=== PATIENT | male | born 1935 | race Caucasian/White ===

== ENCOUNTER 2018-01-26 09:50 | Outpatient (RCR) | payer MEDICARE, OTHER, SELFPAY ==
[2018-01-26 10:34] VITALS: BP 162/86; PULSE 105; RESP 20; TEMP 36.8; BMI 41.5
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
== END 2018-02-03 23:59 ==
LOC: WC 09:50
PROVIDERS: PCP Family Medicine; Visit Provider Podiatrist
DX: E11.622 Type 2 diabetes mellitus with other skin ulcer (principal); L97.322 Non-pressure chronic ulcer of left ankle with fat layer exposed; L97.422 Non-pressure chronic ulcer of left heel and midfoot with fat layer exposed; E11.621 Type 2 diabetes mellitus with foot ulcer
CPT/HCPCS: 11042; 99204; G0463

== ENCOUNTER 2022-03-30 09:46 | Inpatient (IN) | payer OTHER, MEDICARE, SELFPAY ==
[2022-03-30] VITALS (8 sets, daily range): BP systolic 92–131; BP diastolic 62–78; PULSE 81–97; RESP 16–18; TEMP 36.2–37.2; O2SAT 93–97; BMI 38.5; BMI 36.6
--- NOTE | 2022-03-30 10:09 | CT_ITS ---
STUDY: CT BRAIN WITHOUT CONTRAST REASON FOR EXAM: Male, 86 years old. Fall RADIATION DOSAGE (If Supplied By Facility): CTDIvol = ( 44.99 ) mGy, DLP = ( 812.98 ) mGycm TECHNIQUE: Transaxial CT imaging of the brain was performed without administration of intravenous contrast material. Individualized dose optimization techniques were used for this CT. COMPARISON: No relevant priors. FINDINGS: Normal soft tissue structures. Normal calvarium. There is mild cerebral atrophy with widening of the extra-axial spaces and ventricular dilatation. Normal white matter tracts of the cerebral hemispheres. Normal basal ganglia and thalami. Normal brainstem. Normal cerebellum. There is no intracranial hemorrhage. There are no findings of an acute ischemic infarction. Atherosclerotic calcification of the cavernous portions of the internal carotid arteries bilaterally. Normal visualized paranasal sinuses. CT/Brain/Head without Contrast IMPRESSION: Chronic involutional changes of the brain. Electronically Signed: Moises Mckinney MD at 10:57 EDT ,
--- NOTE | 2022-03-30 10:09 | RAD_ITS ---
STUDY: X-RAY - PELVIS AND LEFT HIP REASON FOR EXAM: Male, 86 years old. Left hip pain following a fall TECHNIQUE: 3 views of the pelvis and hip. COMPARISON: None. FINDINGS: There is a non-specific bowel gas pattern. Calcification of the vas deferens. The space narrowing and spondylosis in the lower lumbar spine. There is narrowing with cortical sclerosis and osteophyte formation of the sacroiliac joint consistent with degenerative osteoarthritic changes. Normal bilateral superior and inferior pubic rami. Normal pubic symphysis. Normal bilateral ischial tuberosities. Nondisplaced transcervical fracture. Normal acetabulum. There is moderate articular joint space narrowing of the hip. RAD/HIP, UNI W/ Pelvis 2-3 Views IMPRESSION: Nondisplaced left transcervical fracture. Electronically Signed: Moises Mckinney MD at 10:56 EDT ,
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
[2022-03-30 10:25] LABS: Bedside Glucose 100 mg/dL (74-106)
--- NOTE | 2022-03-30 11:01 | EKG12_ITS ---
Test Reason : PRE-OP Blood Pressure : / mmHG Vent. Rate : 084 BPM Atrial Rate : 000 BPM P-R Int : 000 ms QRS Dur : 150 ms QT Int : 412 ms P-R-T Axes : 000 054 -40 degrees QTc Int : 486 ms Atrial fibrillation with premature ventricular or aberrantly conducted complexes Right bundle branch block T wave abnormality, consider inferolateral ischemia Abnormal ECG Confirmed by CLAU SCOTT, NABILA ([id number]), editor publications TOMASZ LEE ([id number]) on 04/01/2022 10:36:26 AM Referred By: Confirmed By:NABILA OLGUIN MD
[2022-03-30 11:23] LABS: Absolute Lymphocyte Count 1.91 X10^3/uL (0.83-4.51); Absolute Neutrophil Count 6.8 X10^3/uL (2.0-7.7); Basophil# 0.03 X10^3/uL; Basophil% 0.3 % (0-1); Eosinophil# 0.03 X10^3/uL; Eosinophils% 0.3 % (0-5); Hematocrit 37.2 % (40-54); Lymphocyte # 1.91 X10^3/ul (0.83-4.51); Lymphocyte % 20.1 % (19-41); Mean Corp Hgb Conc 32.3 g/dL (32-36); Mean Corpuscular Hgb 28.4 pg (27.0-32.0); Mean Corpuscular Volume 88.2 fL (80-94); Mean Platelet Vol. 9.4 fl (6.2-12.0); Monocyte# 0.73 X10^3/uL; Monocyte% 7.7 % (0-10); NRBC Flagged by Analyzer 0 % (0-5); Neutrophil # 6.75 X10^3/uL (2.7-7.7); Platelet Count 167 K/mm3 (150-450); RBC Distribution Width SD 44.6 fl (35.1-43.9); Red Blood Count 4.22 M/mm3 (4.6-6.2); White Blood Count 9.5 K/mm3 (4.4-11.0)
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
[2022-03-30 11:32] LABS: Anion Gap 6 (5-15); BUN 40 mg/dL (7-18); BUN/Creat Ratio 22.5 RATIO (10-20); Calcium,Total 8.3 mg/dL (8.5-10.1); Chloride 107 mmol/L (98-107); Creatinine, Serum 1.78 mg/dL (0.70-1.30); EST Glomerular Filtration Rate 39 mL/min (>60); Est Glom Filt Rate - Afr Amer 47 mL/min (>60); Estimated Creatinine Clearance 26.39 ml/min; Glucose 100 mg/dL (74-106); Potassium 4.2 mmol/L (3.5-5.1); Sodium Level 142 mmol/L (136-145)
[2022-03-30 11:38] LABS: International Normalized Ratio 1.5
[2022-03-30 11:39] LABS: Partial Thromboplast Time 43.5 Seconds (24.1-36.2)
--- NOTE | 2022-03-30 13:34 | CT_ITS ---
STUDY: CT SCAN LEFT REASON FOR EXAM: Male, 86 years old. Fracture RADIATION DOSAGE (If Supplied By Facility): CTDIvol = ( 33.11 ) mGy, DLP = ( 967.22 ) mGycm. Individualized dose optimization techniques were used for this CT.? TECHNIQUE: Multiple axial tomographic images of the left hip were obtained without intravenous contrast demonstration. Coronal and sagittal reconstructions obtained as well. COMPARISON: Comparison is made with prior radiograph done earlier today. FINDINGS: There is evidence of a subtle nondisplaced transverse fracture of the femoral neck. CT/Extremity Lower without Contra IMPRESSION: There is evidence of a subtle nondisplaced transverse fracture femoral neck. Electronically Signed: Moises Mckinney MD at 14:33 EDT ,
--- NOTE | 2022-03-30 13:36 | CON.PCM_ITS ---
Assessment & Plan Assessment/Plan (1) Closed fracture of left hip: PLAN: Plan Radiologist read a nondisplaced transcervical left hip fracture although I do see some sign of impaction I do not clearly see hip fracture and I am not sure this is a new finding on exam his pain is over the trochanter not the groin with logroll therefore I am ordering a CT scan of the hip to definitively evaluate if there is an acute fracture and also the extent of where propagates to determine appropriate treatment. If indeed it is an isolated nondisplaced impacted neck fracture we discussed proceeding with percutaneous screw fixation morning as he is on Eliquis and last dose was this morning. Eliquis should be h eld he has been started on Lovenox however we should hold this after midnight tonight for planned surgery 05/02/22 if medically cleared. HPI Consult Data Date of Consult: 03/30/22 HPI Narrative HPI Narrative: JAYY SIMMS, is a 86 M who presents with left hip pain after a fall.? He was at a local grocery store.? He was trying to get onto the [employer] grocery cart when his hand hit the button to start the machine.? It pulled forward and the patient fell landing on his left hip. his pain is lateral he denies groin pain. he states he does walk some with a walker, [facility] Medical History Atrial fibrillation Diabetes Diabetes mellitus Hypertension Sleep apnea Smoker Home Medications apixaban 5 mg tablet (Eliquis) 5 mg PO BID 03/30/22 [History Last Taken 03/30/22] bumetanide 1 mg tablet 1 mg PO DAILY FLUID 03/30/22 [History Last Taken 03/30/22] cyanocobalamin (vitamin B-12) 50 mcg tablet (Vitamin B-12) 50 mcg PO DAILY SUPPLEMENT 03/30/22 [History Last Taken 03/30/22] glimepiride 2 mg tablet 2 mg PO DAILY 03/30/22 [History Last Taken 03/29/22] lisinopril 10 mg tablet 10 mg PO DAILY BP 03/30/22 [History Last Taken 03/30/22] metformin 1,000 mg tablet 1,000 mg PO BID 03/30/22 [History Last Taken 03/30/22] metoprolol tartrate 25 mg tablet 25 mg PO BID 03/30/22 [History Last Taken 03/30/22] pantoprazole 20 mg tablet,delayed release 20 mg PO DAILY GERD 03/30/22 [History Last Taken 03/30/22] simvastatin 40 mg tablet 40 mg PO QHS CHOLESTEROL 03/30/22 [History Last Taken 03/29/22] Allergy/AdvReac Type Severity Reaction Status Date / Time Penicillins Allergy NEEDS Verified 03/30/22 09:47 FOLLOW-UP Social History Smoking Status: Current some day smoker tobacco type: cigars Physical Exam Const alert, oriented x3 and no apparent distress Extremity Extremity Narrative: No erythema or ecchymosis around the hip he is tender to palpation of the lateral trochanter he does not have any groin pain with logroll have lateral sided pain. He is able to plantarflex dorsiflex his ankle compartments are soft Lab / Micro Data Result Diagrams: 03/30/22 11:12 03/30/22 11:12 Labs: Laboratory Results - last 24 hr 03/30/22 10:05: POC Glucose 100 03/30/22 11:12: WBC 9.5, RBC 4.22 L, Hgb 12.0 L, Hct 37.2 L, MCV 88.2, MCH 28.4, MCHC 32.3, RDW Std Deviation 44.6 H, RDW Coeff of Areli 14.0, Plt Count 167, MPV 9.4, Immature Gran % (Auto) 0.600, Neut % (Auto) 71.0 H, Lymph % (Auto) 20.1, [place] % (Auto) 7.7, Eos % (Auto) 0.3, Baso % (Auto) 0.3, Absolute Neuts (auto) 6.8, Absolute Lymphs (auto) 1.91, Nucleated RBC % 0 03/30/22 11:12: PT 18.0 H, INR 1.5, APTT 43.5 H 03/30/22 11:12: Sodium 142, Potassium 4.2, Chloride 107, Carbon Dioxide 29.0, Anion Gap 6, BUN 40 H, Creatinine 1.78 H, Estim Creat Clear Calc 26.39, Est GFR (MDRD) Af Amer 47 L, Est GFR (MDRD) Non-Af 39 L, BUN/Creatinine Ratio 22.5 H, Glucose 100, Calcium 8.3 L Radiology Impression Brain CT 03/30/22 10:09 IMPRESSION: Chronic involutional changes of the brain. Electronically Signed: Moises Mckinney MD at 10:57 EDT , Hip/Pelvis X-Ray 03/30/22 10:09 IMPRESSION: Nondisplaced left transcervical fracture. Electronically Signed: Moises Mckinney MD at 10:56 EDT , Chest X-Ray 03/30/22 11:30 IMPRESSION: Findings suggestive of left basilar atelectasis with blunting of the left costophrenic angle. Electronically Signed: Moises Mckinney MD at 12:10 EDT ,
[2022-03-30] MEDS: oxyCODONE 5 MG Tablet PO (13:38)
--- NOTE | 2022-03-30 14:27 | HP.PCM.HOS_ITS ---
HPI - General General Date of Admission: 03/30/22 Date of Service: 03/30/22 Chief Complaint: Left hip pain HPI Narrative JAYY SIMMS, is a 86 M who presented to the emergency department at [facility] on 03/30/2022 with a chief complaint of left hip pain that occurred as a result of a mechanical fall. Patient was evidently at [employer] doing some grocery shopping and he was trying to get on an electric scooter grocery cart when his hand hit the button to start the machine. It pulled forward and the patient fell landing on his left hip. He did strike his head. He had no loss of consciousness at that time and he reports he is on Eliquis for history of atrial fibrillation. His last dose of Eliquis was this morning. Patient currently resides in an independent living facility Vital signs on presentation showed a temperature of 97.2, heart rate 94, blood pressure 125/73, respiratory rate of 18, oxygen saturations are 96% on room air. CBC is overall unremarkable other than a slight anemia with a hemoglobin of 12.0. His chemistry panel shows normal electrolytes with an elevated BUN and serum creatinine of 40 and 1.78 on presentation. Upon review of previous laboratory data it appears he has CKD stage IIIb however his baseline serum creatinine appears to be between 1.4 and 1.6. With reported head trauma CT of his brain was performed and showed only chronic involutional changes. Hip and pelvic x-ray showed a nondisplaced left transcervical fracture. Chest x-ray showed left basilar atelectasis with blunting of the left costophrenic angle but no acute findings. His EKG shows T wave inversions in the inferior lateral leads with a right bundle branch block and atrial fibrillation. The patient den ies any previous coronary artery disease or stent placement. [facility] Medical History (Updated 03/30/22 @ 14:[address] Bela Mayes, ) Atrial fibrillation B12 deficiency BPH (benign prostatic hyperplasia) Chronic anemia Diabetes Diabetic neuropathy GERD (gastroesophageal reflux disease) Gout Hyperlipidemia Hypertension Obesity ANDREINA (obstructive sleep apnea) Sleep apnea Smoker Stage 3b chronic kidney disease (CKD) Home Medications apixaban 5 mg tablet (Eliquis) 5 mg PO BID 03/30/22 [History Last Taken 03/30/22] bumetanide 1 mg tablet 1 mg PO DAILY FLUID 03/30/22 [History Last Taken 03/30/22] cyanocobalamin (vitamin B-12) 50 mcg tablet (Vitamin B-12) 50 mcg PO DAILY SUPPLEMENT 03/30/22 [History Last Taken 03/30/22] glimepiride 2 mg tablet 2 mg PO DAILY 03/30/22 [History Last Taken 03/29/22] lisinopril 10 mg tablet 10 mg PO DAILY BP 03/30/22 [History Last Taken 03/30/22] metformin 1,000 mg tablet 1,000 mg PO BID 03/30/22 [History Last Taken 03/30/22] metoprolol tartrate 25 mg tablet 25 mg PO BID 03/30/22 [History Last Taken 03/30/22] pantoprazole 20 mg tablet,delayed release 20 mg PO DAILY GERD 03/30/22 [History Last Taken 03/30/22] simvastatin 40 mg tablet 40 mg PO QHS CHOLESTEROL 03/30/22 [History Last Taken 03/29/22] Allergy/AdvReac Type Severity Reaction Status Date / Time Penicillins Allergy NEEDS Verified 03/30/22 09:47 FOLLOW-UP Family History (Updated 03/30/22 @ 14:[address] Bela Mayes DO) Other Heart disease Hypertension Uterine cancer Surgical History (Updated 03/30/22 @ 14:[address] Bela Mayes DO) H/O colonoscopy History of knee replacement Status post gastric banding Social History (Updated 03/30/22 @ 14:[address] Bela Mayes DO) housing: other details: Independent living at a nursing facility Smoking Status: Current some day smoker tobacco type: cigars alcohol intake: current alcohol intake frequency: holidays/special occasions only substance use type: does not use ROS Constitutional Constitutional: Denies anorexia, change in weight, chills, fatigue, fever(s), malaise, night sweats, weakness or other Eyes Eyes: Denies blurry vision, change in eye color, change in vision, discharge from eye(s), double vision, erythema, eye pain, loss of vision or other ENT HEENT: Denies abnormal hearing, dysphagia, ear pain, epistaxis, headache(s), hearing loss, nasal congestion, nasal discharge, post nasal drip, sinus pressure, sore throat or other Cardiovascular Cardiovascular: Denies chest pain, claudication, dyspnea on exertion, edema, lightheadedness, orthopnea, palpitations, paroxysmal nocturnal dyspnea, rapid heart rate, syncope or other Respiratory/Chest Respiratory/Chest: Denies cough, dyspnea, excessive phlegm production, hemoptysis, productive cough, shortness of breath at rest, shortness of breath with exertion, wheezing or other Gastrointestinal Gastrointestinal: Denies abdominal pain, coffee ground emesis, constipation, diarrhea, dyspepsia, hematemesis, hematochezia, loose stools, melena, nausea, vomiting or other Genitourinary Genitourinary: Denies burning urination, difficulty urinating, dysuria, hematuria, nocturia, urinary frequency, urinary hesitancy, urinary incontinence, urinary urgency or other Musculoskeletal Musculoskeletal: Reports arthralgias, joint pain, joint stiffness and joint swelling; Denies back pain, myalgias, neck pain or other Neurologic Neurologic: Reports abnormal gait and paresthesias LUE and LLE; Denies abnormal speech, confusion, disequilibrium, dizziness, focal weakness, headache(s), numbness, seizure-like activity, seizures, syncope, tingling, tremor(s) or other Psychiatric Psychiatric: Denies anxiety, depression, homicidal ideation, suicidal ideation or other Endocrine Endocrinology: Denies change in body appearance, cold intolerance, excessive sweating, heat intolerance, polydipsia, polyuria or other Hematologic/Lymphatic Hematologic/Lymphatic: Denies anemia, easy bleeding, easy bruising, lymphadenopathy or other Allergic/Immunologic Allergic/Immunologic: Denies rhinitis, hives, eczemia, asthma or other Vital Signs Vital Signs Vital Signs: 03/30/22 09:49 03/30/22 09:51 03/30/22 12:12 Temperature 97.2 F L Temperature Source Temporal Pulse Rate 94 81 Respiratory Rate 18 16 Respiratory Effort Normal Non-Labored Respiratory Depth Respiratory Pattern Blood Pressure 125/73 H 131/78 H Blood Pressure Mean 90 95 Pulse Ox 96 97 95 Oxygen Delivery Method Room Air Room Air Room Air 03/30/22 12:46 03/30/22 13:00 Temperature 97.8 F Temperature Source Temporal Pulse Rate 89 Respiratory Rate 18 Respiratory Effort Normal Respiratory Depth Normal Respiratory Pattern Normal Blood Pressure 131/74 H Blood Pressure Mean 93 Pulse Ox 95 Oxygen Delivery Method Room Air Room Air Weight Weight: 99.79 kg Body Mass Index (BMI) 36.6 Physical Exam Const alert, oriented x3, no apparent distress and well nourished Constitutional Narrative: Obese, elderly white male lying in bed, appears comfortable and nontoxic General Appearance: cooperative HEENT normocephalic, head/scalp atraumatic and moist oral mucous membranes; Negative for hearing grossly normal bilaterally HEENT Narrative: Mallampati 3, dentition is fair for age, no thrush, moderate hearing loss Eyes PERRL, EOMs intact bilaterally and conjunctivae normal Eyes Narrative: Scleral icterus Neck no lymphadenopathy, supple, no JVD and no carotid bruits Neck Narrative: Trachea midline, no thyroid enlargement Resp normal respiratory effort, no retractions, no use of accessory muscles and clear to auscultation bilaterally Auscultation: Negative for crackles, rales, rhonchi or wheezes Cardio regular rhythm, S1 normal heart sound, S2 normal heart sound, no murmurs, no rub, no gallops, no clicks and no JVD Cardio Narrative: Irregularly irregular rhythm GI normal to inspection, nondistended, normoactive bowel sounds, soft to palpation and non-tender Extremity Extremity Narrative: Trace bilateral lower extremity edema, no cyanosis, small amount of clubbing on hands Skin no rashes or lesions noted, no wounds, skin turgor normal, no jaundice, no p etechiae and no mottling Neuro oriented x3, CN's II-XII intact bilaterally and no focal motor deficits Neuro Narrative: Decreased movement left lower extremity secondary to pain at hip joint but no focal deficits Speech: speech normal Psych affect normal Psych Narrative: Appropriately interactive Results Lab / Micro Data Result Diagrams: 03/30/22 11:12 03/30/22 11:12 Labs: Laboratory Results - last 24 hr 03/30/22 10:05: POC Glucose 100 03/30/22 11:12: WBC 9.5, RBC 4.22 L, Hgb 12.0 L, Hct 37.2 L, MCV 88.2, MCH 28.4, MCHC 32.3, RDW Std Deviation 44.6 H, RDW Coeff of Areli 14.0, Plt Count 167, MPV 9.4, Immature Gran % (Auto) 0.600, Neut % (Auto) 71.0 H, Lymph % (Auto) 20.1, [place] % (Auto) 7.7, Eos % (Auto) 0.3, Baso % (Auto) 0.3, Absolute Neuts (auto) 6.8, Absolute Lymphs (auto) 1.91, Nucleated RBC % 0 03/30/22 11:12: PT 18.0 H, INR 1.5, APTT 43.5 H 03/30/22 11:12: Sodium 142, Potassium 4.2, Chloride 107, Carbon Dioxide 29.0, Anion Gap 6, BUN 40 H, Creatinine 1.78 H, Estim Creat Clear Calc 26.39, Est GFR (MDRD) Af Amer 47 L, Est GFR (MDRD) Non-Af 39 L, BUN/Creatinine Ratio 22.5 H, Glucose 100, Calcium 8.3 L Radiology Impression Brain CT 03/30/22 10:09 IMPRESSION: Chronic involutional changes of the brain. Electronically Signed: Moises Mckinney MD at 10:57 EDT , Hip/Pelvis X-Ray 03/30/22 10:09 IMPRESSION: Nondisplaced left transcervical fracture. Electronically Signed: Moises Mckinney MD at 10:56 EDT , Chest X-Ray 03/30/22 11:30 IMPRESSION: Findings suggestive of left basilar atelectasis with blunting of the left costophrenic angle. Electronically Signed: Moises Mckinney MD at 12:10 EDT , Assessment & Plan Assessment/Plan (1) Closed fracture of left hip: (2) Pain of left lower extremity: (3) Fall: PLAN: Plan Left femoral fracture -As needed pain medication -Hold home Eliquis -Last dose was this a.m. -Bowel regimen -EKG with changes and unclear if this is chronic or new therefore will obtain echocardiogram -We have no baseline EKG for comparison -Orthopedic surgery consult -Postoperative PT/OT -Patient will likely at least need assisted living if not skilled at discharge as patient is currently living in independent living facility -Per NSQIP patient is at an increased risk for serious complication/any complication/readmission//return to the OR Atrial fibrillation -Chronic -Hold Eliquis and restart postoperatively when okay with orthopedic surgery -Continue home prelaw -Monitor clinically DM-2 -Hold home glimepiride -Hold home metformin -A1c done 01/2022 was 6.2 indicating good glycemic control -Moderate dose SSI 3 times daily -Accu-Cheks as ordered Hypertension -We will hold home lisinopril in the perioperative period and restart postoperatively -Could metoprolol -As needed hydralazine Hyperlipidemia -Continue home statin Gout -Patient is not on any baseline medication -Monitor clinically GERD -Continue home Protonix Neuropathy -Monitor -Patient is not on any baseline gabapentin for this CKD stage IIIb -Slight bump from baseline at 1.78 on admission. -Appears baseline is 1.4-1.6 -We will hold diuretic and reevaluate tomorrow -Avoid nephrotoxins as able BPH -Patient will have Monae with hip fracture -We will start Flomax to avoid urinary retention postoperatively with anesthesia and history of BPH Chronic anemia -Baseline hemoglobin appears to be between 12 and 13 -Hemoglobin stable -Continue to monitor B12 deficiency -Restart home cyanocobalamin on discharge DVT prophylaxis -SCDs -Chemoprophylaxis on hold in preparation for surgery -We will leave postoperative chemoprophylaxis to orthopedic surgery Tobacco abuse -Patient smokes 1 cigar every few days -Denies need for nicotine replacement therapy -Recommend cessation CODE STATUS Charges/Coding Visit Charges Inpatient E&M: 39678 Init Hosp L3
--- NOTE | 2022-03-30 14:37 | ECHOD_ITS ---
Reason For Study: OTHER Procedure This was a 2D Doppler, Color Flow transthoracic echocardiogram. Technically difficult study due to patient laying on right side. Definity deferred due to pulmonary pressures. The study was technically difficult. Exam performed portable in patient room. Left Ventricle Based upon the 2D echocardiographic images obtained there appears to be grossly normal left ventricular size, wall motion, and systolic function. The estimated ejection fraction is 55 %. Diastolic function is indeterminate. Right Ventricle Based upon the 2D echocardiographic images obtained there appears to be grossly normal right ventricular size and systolic function. Atria The left atrium is moderately enlarged. The right atrium is severely enlarged. No doppler evidence for ASD. Mitral Valve There is no mitral annular calcification. Normal mitral valve. Mild (1+) mitral valve insufficiency. Tricuspid Valve Normal tricuspid valve. Mild eccentric tricuspid valve insufficiency. Right ventricular systolic pressure estimated to be 71 mmHg. Severe pulmonary hypertension. Aortic Valve Trisinus/trileaflet aortic valve. Moderate diffuse aortic valve calcification. Mild to moderate aortic stenosis. Pulmonic Valve The pulmonic valve is not well visualized. Trivial pulmonic valve insufficiency. Great Vessels Mildly dilated aortic root. Pericardium/Pleural Trivial pericardial effusion. There are no echocardiographic indications of cardiac tamponade. MMode/2D Measurements & Calculations LVIDd: 4.3 cm IVSd: 1.7 cm LVOT diam: 2.0 cm LVIDs: 3.1 cm LVPWd: 1.4 cm LVOT area: 3.1 cm2 FS: 28.0 % Ao root diam: 4.1 cm LAV(MOD-sp4): 94.2 ml LA A4 area: 28.7 cm2 LA dimension(2D): 4.4 cm RA A4 area: 39.2 cm2 Doppler Measurements & Calculations MV E max emily: 136.3 cm/sec MV V2 max: 142.0 cm/sec Ao V2 max: 205.5 cm/sec MV max P.1 mmHg Ao max P.0 mmHg MV V2 mean: 82.5 cm/sec Ao V2 mean: 146.4 cm/sec MV mean P.4 mmHg Ao mean P.8 mmHg MV V2 VTI: 33.1 cm Ao V2 VTI: 32.1 cm MVA(VTI): 1.2 cm2 ARMAND(I,D): 1.2 cm2 ARMAND(V,D): 1.0 cm2 LV V1 max: 68.4 cm/sec SV(LVOT): 39.6 ml PA V2 max: 84.1 cm/sec LV V1 max P.9 mmHg PA V2 mean: 59.7 cm/sec LV V1 mean P.1 mmHg LV V1 mean: 48.2 cm/sec LV V1 VTI: 13.0 cm TR max emily: 412.3 cm/sec TR max P.0 mmHg ECHO/Echo Complete Interpretation Summary The study was technically difficult. Based upon the 2D echocardiographic images obtained there appears to be grossly normal left ventricular size, wall motion, and systolic function. The estimated ejection fraction is 55 %. The left atrium is moderately enlarged. The right atrium is severely enlarged. Mild (1+) mitral valve insufficiency. Mild eccentric tricuspid valve insufficiency. Moderate diffuse aortic valve calcification. Mild to moderate aortic stenosis. Trivial pulmonic valve insufficiency. Mildly dilated aortic root. Trivial pericardial effusion. There are no echocardiographic indications of cardiac tamponade. Right ventricular systolic pressure estimated to be 71 mmHg. Severe pulmonary hypertension. Diastolic function is indeterminate. Ordering Physician: Bela Mayes Performed By: Jeniffer East RCS
[2022-03-30] MEDS: Acetaminophen 500 MG Tablet 1000 MG PO ×2 (15:41→21:47)
[2022-03-30] MEDS: Nystatin Powder 15gm Bottle 1 APPLIC TOPICAL ×2 (16:41→21:47)
[2022-03-30] MEDS: Tamsulosin HCl 0.4 MG Capsule PO (16:41)
[2022-03-30 16:56] LABS: Bedside Glucose 117 mg/dL (74-106)
[2022-03-30] MEDS: Metoprolol Tartrate 25 MG Tablet PO (21:47)
[2022-03-30] MEDS: Atorvastatin Calcium 20 MG Tablet PO (21:47)
[2022-03-30 22:10] LABS: Bedside Glucose 144 mg/dL (74-106)
[2022-03-31] VITALS (9 sets, daily range): BP systolic 91–128; BP diastolic 53–71; PULSE 61–99; RESP 16–18; TEMP 36.4–37.2; O2SAT 92–99
[2022-03-31] MEDS: Senna/Docusate Sodium 1 Tablet 2 TABLET PO (03:03)
[2022-03-31] MEDS: Acetaminophen 500 MG Tablet 1000 MG PO ×3 (06:37→21:14)
[2022-03-31] MEDS: oxyCODONE 5 MG Tablet PO (06:40)
[2022-03-31 06:55] LABS: Bedside Glucose 101 mg/dL (74-106)
[2022-03-31 07:09] LABS: Absolute Lymphocyte Count 1.28 X10^3/uL (0.83-4.51); Absolute Neutrophil Count 6.4 X10^3/uL (2.0-7.7); Basophil# 0.03 X10^3/uL; Basophil% 0.4 % (0-1); Eosinophil# 0.12 X10^3/uL; Eosinophils% 1.4 % (0-5); Hematocrit 35.2 % (40-54); Hemoglobin 11.8 g/dL (13.0-16.5); Lymphocyte # 1.28 X10^3/ul (0.83-4.51); Mean Corp Hgb Conc 33.5 g/dL (32-36); Mean Corpuscular Hgb 29.4 pg (27.0-32.0); Mean Corpuscular Volume 87.6 fL (80-94); Mean Platelet Vol. 10.3 fl (6.2-12.0); Monocyte# 0.69 X10^3/uL; Monocyte% 8.1 % (0-10); NRBC Flagged by Analyzer 0 % (0-5); Neutrophil % 74.7 % (47-70); Platelet Count 158 K/mm3 (150-450); RBC Distribution Width CV 14.1 % (11.6-14.6); RBC Distribution Width SD 44.7 fl (35.1-43.9); Red Blood Count 4.02 M/mm3 (4.6-6.2); White Blood Count 8.6 K/mm3 (4.4-11.0)
--- NOTE | 2022-03-31 07:32 | PCM.PN.ORT ---
Subjective Subjective Seen and examined doing okay pain controlled no new complaints Pleasant. Objective Data Objective Data Vital Signs: Vital Signs Temp Pulse Resp BP Pulse Ox O2 Del Method 99 F 99 18 91/62 99 Room Air 03/31/22 02:59 03/31/22 02:59 03/31/22 02:59 03/31/22 02:59 03/31/22 02:59 03/31/22 03:00 Oxygen Delivery Method Room Air Weight: 220 lb 10.923 oz Body Mass Index (BMI) 36.6 Intake & Output: Intake and Output for Last 24 Hours 03/29/22 03/30/22 03/31/22 23:59 23:59 23:59 Output Total 100 / 100 200 / 200 Balance -100 / -100 -200 / -200 Lab / Micro Data Result Diagrams: 03/31/22 06:40 03/30/22 11:12 Labs: Laboratory Results - last 24 hr 03/30/22 10:05: POC Glucose 100 03/30/22 11:12: WBC 9.5, RBC 4.22 L, Hgb 12.0 L, Hct 37.2 L, MCV 88.2, MCH 28.4, MCHC 32.3, RDW Std Deviation 44.6 H, RDW Coeff of Areli 14.0, Plt Count 167, MPV 9.4, Immature Gran % (Auto) 0.600, Neut % (Auto) 71.0 H, Lymph % (Auto) 20.1, [place] % (Auto) 7.7, Eos % (Auto) 0.3, Baso % (Auto) 0.3, Absolute Neuts (auto) 6.8, Absolute Lymphs (auto) 1.91, Nucleated RBC % 0 03/30/22 11:12: PT 18.0 H, INR 1.5, APTT 43.5 H 03/30/22 11:12: Sodium 142, Potassium 4.2, Chloride 107, Carbon Dioxide 29.0, Anion Gap 6, BUN 40 H, Creatinine 1.78 H, Estim Creat Clear Calc 26.39, Est GFR (MDRD) Af Amer 47 L, Est GFR (MDRD) Non-Af 39 L, BUN/Creatinine Ratio 22.5 H, Glucose 100, Calcium 8.3 L 03/30/22 16:30: POC Glucose 117 H 03/30/22 21:42: POC Glucose 144 H 03/31/22 06:36: POC Glucose 101 03/31/22 06:40: WBC 8.6, RBC 4.02 L, Hgb 11.8 L, Hct 35.2 L, MCV 87.6, MCH 29.4, MCHC 33.5, RDW Std Deviation 44.7 H, RDW Coeff of Areli 14.1, Plt Count 158, MPV 10.3, Immature Gran % (Auto) 0.400, Neut % (Auto) 74.7 H, Lymph % (Auto) 15.0 L, [place] % (Auto) 8.1, Eos % (Auto) 1.4, Baso % (Auto) 0.4, Absolute Neuts (auto) 6.4, Absolute Lymphs (auto) 1.28, Nucleated RBC % 0 Radiography Diagnostic Testing: Radiology Impression Brain CT 03/30/22 10:09 IMPRESSION: Chronic involutional changes of the brain. Electronically Signed: Moises Mckinney MD at 10:57 EDT , Hip/Pelvis X-Ray 03/30/22 10:09 IMPRESSION: Nondisplaced left transcervical fracture. Electronically Signed: Moises Mckinney MD at 10:56 EDT , Chest X-Ray 03/30/22 11:30 IMPRESSION: Findings suggestive of left basilar atelectasis with blunting of the left costophrenic angle. Electronically Signed: Moises Mckinney MD at 12:10 EDT , Lower Extremity CT 03/30/22 13:34 IMPRESSION: There is evidence of a subtle nondisplaced transverse fracture femoral neck. Electronically Signed: Moises Mckinney MD at 14:33 EDT , Echocardiogram 03/30/22 14:37 Interpretation Summary The study was technically difficult. Based upon the 2D echocardiographic images obtained there appears to be grossly normal left ventricular size, wall motion, and systolic function. The estimated ejection fraction is 55 %. The left atrium is moderately enlarged. The right atrium is severely enlarged. Mild (1+) mitral valve insufficiency. Mild eccentric tricuspid valve insufficiency. Moderate diffuse aortic valve calcification. Mild to moderate aortic stenosis. Trivial pulmonic valve insufficiency. Mildly dilated aortic root. Trivial pericardial effusion. There are no echocardiographic indications of cardiac tamponade. Right ventricular systolic pressure estimated to be 71 mmHg. Severe pulmonary hypertension. Diastolic function is indeterminate. Ordering Physician: Bela Mayes Performed By: Jeniffer East RCS Physical Exam Const alert, oriented x3 and no apparent distress General Appearance: cooperative Extremity Extremity Narrative: Left hip unchanged examination from yesterday no skin changes compartments soft tender lateral hip he does have neuropathy bilateral lower extremities about mid leg down. Assessment & Plan Assessment/Plan (1) Fracture of femoral neck, left, closed: PLAN: Plan Nondisplaced transcervical femoral neck fracture left hip confirmed on CT scan without propagation. Plan for percutaneous screw fixation with 3 cannulated screws 04/01/2022 7:30 AM if medically cleared. N.p.o. after midnight antibiotics on-call to the OR hold anticoagulation. Patient will be toe-touch weightbearing postoperatively will likely require assistance postoperatively before returning home. We will resume his anticoagulation postop.
[2022-03-31 08:00] LABS: ALB/GLOB Ratio 0.9 RATIO (0.9-2.4); AST(SGOT) 13 U/L (15-37); Alanine Aminotransfer ALT/SGPT 14 U/L (16-61); Albumin, Serum 2.9 g/dL (3.2-5.0); Alkaline Phosphatase 67 U/L (45-117); Anion Gap 9 (5-15); BUN 44 mg/dL (7-18); BUN/Creat Ratio 24.7 RATIO (10-20); Calcium,Total 7.7 mg/dL (8.5-10.1); Chloride 105 mmol/L (98-107); Creatinine, Serum 1.78 mg/dL (0.70-1.30); EST Glomerular Filtration Rate 39 mL/min (>60); Est Glom Filt Rate - Afr Amer 47 mL/min (>60); Estimated Creatinine Clearance 26.39 ml/min; Globulin 3.1 g/dL (2.2-4.2); Glucose 106 mg/dL (74-106); Magnesium 0.9 mg/dL (1.6-2.6); Phosphorus 3.7 mg/dL (2.5-4.9); Sodium Level 140 mmol/L (136-145); Thyroid Stim Hormone (TSH) 1.19 uIU/mL (0.358-3.74)
[2022-03-31] MEDS: Pantoprazole Sodium 20 MG Tablet PO (08:18)
[2022-03-31] MEDS: Nystatin Powder 15gm Bottle 1 APPLIC TOPICAL ×2 (08:18→21:14)
[2022-03-31] MEDS: Metoprolol Tartrate 25 MG Tablet PO ×2 (08:18→21:13)
[2022-03-31] MEDS: Lactated Ringers 1,000 ML 50 ML IV (09:10)
[2022-03-31] MEDS: Magnesium Sulfate 4gm/100mL 4 GM/100 ML IV.SOLN. IV (09:11)
[2022-03-31] MEDS: Insulin Lispro 100 UNIT/ML INSULN.PEN SC ×2 (11:13→16:12)
[2022-03-31 11:26] LABS: Bedside Glucose 208 mg/dL (74-106)
--- NOTE | 2022-03-31 12:35 | CASEMGMT ---
ASHTYN BARRAGAN Assessment: Face to Face with pt for initial transition planning/care coordination assessment. RN LAUREL introduced self and role at [facility], pt voices understanding and consents to assessment. Pt is A/O x4 and answers all questions appropriately at this time. Pt in bed and appeared to be in no distress. Care providers, pharmacy, and demographics verified/updated. Admitting Dx: Hip Fx. PCP: [facility]. Specialists: Dr santiago, Podiatry; Triston, Ortho. [facility] Insurance: Medicare Part A B, [facility]. Prescription Benefit: yes. LW/HPOA: Pt reports his son is his HPOA. Advised LW/HPOA not on file. Encouraged Pt to bring in a copy if desired. LNOK: Add- Son, Phuc Hdz and dtr-in-law Vani. Living Arrangements: Pt lives at [facility]. Pt reports being I of ADLs. Transportation: Pt drives self and denies concerns with transportation. DME/HHC/SNF: Pt lives in [place] with the following: cane, walker, shower chair, and raised toilet. Pt reports he has been to the side of the facility when he had knee replacements. Pt denied any other SNF stays. Pt states no concerns with going home at time of dc. Pt states no further concerns/needs. CM to follow. Advised pt to ask CM if any further question/concerns/needs arise, voices understanding. Pt Goal: Pt is agreeable to go to [facility] if needed after surgery. Plan: TBD pending surgery and therapy evals.
--- NOTE | 2022-03-31 13:10 | PN.HOSP_ITS ---
Subjective Subjective No significant issues overnight. Patient states his pain is controlled currently. Plan is for the OR tomorrow morning. Objective Data Objective Data Vital Signs: Vital Signs Temp Pulse Resp BP Pulse Ox O2 Del Method 98.6 F 84 18 100/70 93 Room Air 03/31/22 09:00 03/31/22 09:00 03/31/22 09:00 03/31/22 09:00 03/31/22 09:16 03/31/22 09:16 Oxygen Delivery Method Room Air Weight: 100.1 kg Body Mass Index (BMI) 36.6 Intake & Output: Intake and Output for Last 24 Hours 03/29/22 03/30/22 03/31/22 23:59 23:59 23:59 Output Total 100 / 100 400 / 400 Balance -100 / -100 -400 / -400 Lab / Micro Data Result Diagrams: 03/31/22 06:40 03/31/22 06:40 Labs: Laboratory Results - last 24 hr 03/30/22 16:30: POC Glucose 117 H 03/30/22 21:42: POC Glucose 144 H 03/31/22 06:36: POC Glucose 101 03/31/22 06:40: WBC 8.6, RBC 4.02 L, Hgb 11.8 L, Hct 35.2 L, MCV 87.6, MCH 29.4, MCHC 33.5, RDW Std Deviation 44.7 H, RDW Coeff of Areli 14.1, Plt Count 158, MPV 10.3, Immature Gran % (Auto) 0.400, Neut % (Auto) 74.7 H, Lymph % (Auto) 15.0 L, [place] % (Auto) 8.1, Eos % (Auto) 1.4, Baso % (Auto) 0.4, Absolute Neuts (auto) 6.4, Absolute Lymphs (auto) 1.28, Nucleated RBC % 0 03/31/22 06:40: Sodium 140, Potassium 4.0, Chloride 105, Carbon Dioxide 26.0, Anion Gap 9, BUN 44 H, Creatinine 1.78 H, Estim Creat Clear Calc 26.39, Est GFR (MDRD) Af Amer 47 L, Est GFR (MDRD) Non-Af 39 L, BUN/Creatinine Ratio 24.7 H, Glucose 106, Calcium 7.7 L, Phosphorus 3.7, Magnesium 0.9 L*, Total Bilirubin 0.90, AST 13 L, ALT 14 L, Alkaline Phosphatase 67, Total Protein 6.0 L, Albumin 2.9 L, Globulin 3.1, Albumin/Globulin Ratio 0.9, TSH 1.19 03/31/22 11:02: POC Glucose 208 H Radiography Diagnostic Testing: Radiology Impression Lower Extremity CT 03/30/22 13:34 IMPRESSION: There is evidence of a subtle nondisplaced transverse fracture femoral neck. Electronically Signed: Moises Mckinney MD at 14:33 EDT , Echocardiogram 03/30/22 14:37 Interpretation Summary The study was technically difficult. Based upon the 2D echocardiographic images obtained there appears to be grossly normal left ventricular size, wall motion, and systolic function. The estimated ejection fraction is 55 %. The left atrium is moderately enlarged. The right atrium is severely enlarged. Mild (1+) mitral valve insufficiency. Mild eccentric tricuspid valve insufficiency. Moderate diffuse aortic valve calcification. Mild to moderate aortic stenosis. Trivial pulmonic valve insufficiency. Mildly dilated aortic root. Trivial pericardial effusion. There are no echocardiographic indications of cardiac tamponade. Right ventricular systolic pressure estimated to be 71 mmHg. Severe pulmonary hypertension. Diastolic function is indeterminate. Ordering Physician: Bela Mayes Performed By: Jeniffer East RCS Physical Exam Const alert, oriented x3, no apparent distress and well nourished Constitutional Narrative: Obese, elderly white male lying in bed, appears comfortable and nontoxic, nursing at bedside General Appearance: cooperative HEENT head/scalp atraumatic and moist oral mucous membranes; Negative for hearing grossly normal bilaterally Resp normal respiratory effort, no retractions, no use of accessory muscles and clear to auscultation bilaterally Auscultation: Negative for crackles, rales, rhonchi or wheezes Cardio regular rhythm, S1 normal heart sound, S2 normal heart sound, no murmurs, no rub, no gallops, no clicks and no JVD Cardio Narrative: Irregularly irregular rhythm GI normal to inspection, nondistended, normoactive bowel sounds, soft to palpation and non-tender Extremity Extremity Narrative: Trace bilateral lower extremity edema, no cyanosis, small amount of clubbing on hands Neuro oriented x3 and no focal motor deficits Speech: speech normal Assessment & Plan Assessment/Plan (1) Closed fracture of left hip: (2) Pain of left lower extremity: (3) Fall: (4) Hypomagnesemia: PLAN: Plan Left femoral fracture -As needed pain medication -Continue to hold home Eliquis -Last dose was a.m. of 03/30/2022 -Bowel regimen -EKG with changes and unclear if this is chronic or new therefore will obtain echocardiogram -Echocardiogram shows EF of 55% with biatrial enlargement right greater than left, mild to moderate aortic stenosis, mildly dilated aortic root, and a right ventricular systolic pressure of 71 mmHg with severe pulmonary artery hypertension, patient has no wall motion abnormalities -Orthopedic surgery to take to the OR tomorrow morning -Postoperative PT/OT -Patient will likely at least need assisted living if not skilled at discharge as patient is currently living in independent living facility -Per NSQIP patient is at an increased risk for serious complication/any complication/readmission//return to the OR -Would highly recommend extubating to BiPAP after surgery as patient is high risk for postoperative hypercapnia due to ANDREINA for which the patient is noncompliant and likely COPD Atrial fibrillation -Chronic -Hold Eliquis and restart postoperatively when okay with orthopedic surgery -Continue home metoprolol -Monitor clinically Hypomagnesemia -Severe -A.m. mag level is 0.8 -6 g replacement -Repeat mag level in a.m. Aortic stenosis -Mild to moderate on echo -Aortic valve area estimate is 1.2 cm on echocardiogram -We will recommend outpatient follow-up Pulmonary hypertension -Who group 3 secondary to likely obesity hypoventilation syndrome and ANDREINA along with possible COPD given history of tobacco abuse -Diuretics on hold secondary to KUSUM -We will gently hydrate at this time but monitor closely for volume overload -Restart Lasix as able DM-2 -Hold home glimepiride -Hold home metformin -A1c done 01/2022 was 6.2 indicating good glycemic control -A.m. fasting sugar was 106 -Moderate dose SSI 3 times daily -Accu-Cheks as ordered Hypertension -We will hold home lisinopril in the perioperative period and restart postoperatively -Continue metoprolol -As needed hydralazine -Blood pressures appear well controlled Hyperlipidemia -Continue home statin Gout -Patient is not on any baseline medication -Monitor clinically GERD -Continue home Protonix Neuropathy -Monitor -Patient is not on any baseline gabapentin for this CKD stage IIIb -Slight bump from baseline at 1.78 on admission and remained stable this morning -Appears baseline is 1.4-1.6 -Continue to hold diuretic and gently hydrate as patient will be n.p.o. tomorrow -Will likely stop IV fluids after surgery 04/01/2022 -Avoid nephrotoxins as able BPH -Patient will have Monae with hip fracture -We will start Flomax to avoid urinary retention postoperatively with anesthesia and history of BPH Chronic anemia -Baseline hemoglobin appears to be between 12 and 13 -Hemoglobin stable -Continue to monitor B12 deficiency -Restart home cyanocobalamin on discharge DVT prophylaxis -SCDs -Chemoprophylaxis on hold in preparation for surgery -We will leave postoperative chemoprophylaxis to orthopedic surgery Tobacco abuse -Patient smokes 1 cigar every few days -Denies need for nicotine replacement therapy -Recommend cessation Charges/Coding Visit Charges Inpatient E&M: 90365 Subs Hosp L2
--- NOTE | 2022-03-31 13:15 | CHAPLAIN ---
Type of Pastoral Visit _x__ Initial Visit ___ Follow-up Visit ___ On-call Visit ___ General Patient Visit ___ Spiritual Assessment ___ Family Conference ___ Bereavement ___ Rapid Response ___ Code Blue ___ Other (describe below) Pastoral Care Referral From _x__ Patient ___ Family ___ Nurse ___ Physician ___ Medical Record Retrieval Specialist ___ Supply Chain Business Analyst ___ Other (describe below) Sacrament/Intervention _x__ Active listening ___ Anointing ___ Sikhism ___ Bereavement ___ Communion _x__ Renay exploration ___ _x__ Life review _x__ Prayer ___ Reconciliation ___ Sacrament of Sick _x__ Supportive presence ___ Wedding ___ Other (describe below) Pastoral Comments patient tells of his fall and how disappointed he is because this will set me back quite a bit; pt gives lots of life review, and renay explanation; pt has children that are supportive; pt welcome presence and prayers for support
[2022-03-31] MEDS: Tamsulosin HCl 0.4 MG Capsule PO (16:13)
[2022-03-31 16:35] LABS: Bedside Glucose 177 mg/dL (74-106)
[2022-03-31] MEDS: Atorvastatin Calcium 20 MG Tablet PO (21:14)
[2022-03-31 21:55] LABS: Bedside Glucose 139 mg/dL (74-106)
[2022-04-01] VITALS (14 sets, daily range): BP systolic 94–122; BP diastolic 44–70; PULSE 77–108; RESP 16–18; TEMP 36.1–37.4; O2SAT 92–97; BMI 36.6
[2022-04-01] MEDS: Lactated Ringers 1,000 ML 50 ML IV (03:53)
[2022-04-01 04:16] LABS: Bedside Glucose 174 mg/dL (74-106)
[2022-04-01 05:57] LABS: Hematocrit 35.6 % (40-54); Hemoglobin 11.8 g/dL (13.0-16.5); Mean Corp Hgb Conc 33.1 g/dL (32-36); Mean Corpuscular Hgb 28.9 pg (27.0-32.0); Mean Platelet Vol. 9.8 fl (6.2-12.0); Platelet Count 143 K/mm3 (150-450); RBC Distribution Width CV 14.2 % (11.6-14.6); RBC Distribution Width SD 44.9 fl (35.1-43.9); Red Blood Count 4.09 M/mm3 (4.6-6.2); White Blood Count 8.2 K/mm3 (4.4-11.0)
--- NOTE | 2022-04-01 06:30 | RAD_ITS ---
STUDY: X-RAY - PELVIS AND LEFT HIP REASON FOR EXAM: Male, 86 years old. FX TECHNIQUE: 1 views of the pelvis and hip. COMPARISON: None. FINDINGS: Intraoperative image demonstrates 3 lag screws with there are threaded portions extending into the femoral head. RAD/Hip 1 view with Pelvis IMPRESSION: Relate screws extending into the femoral head. Electronically Signed: Devin Mcmanus MD, MAKEDA at 11:18 EDT ,
[2022-04-01 06:48] LABS: Anion Gap 6 (5-15); BUN 41 mg/dL (7-18); Calcium,Total 7.9 mg/dL (8.5-10.1); Chloride 104 mmol/L (98-107); Creatinine, Serum 1.71 mg/dL (0.70-1.30); EST Glomerular Filtration Rate 41 mL/min (>60); Est Glom Filt Rate - Afr Amer 49 mL/min (>60); Estimated Creatinine Clearance 27.47 ml/min; Glucose 150 mg/dL (74-106); Magnesium 2.3 mg/dL (1.6-2.6); Potassium 3.8 mmol/L (3.5-5.1); Sodium Level 137 mmol/L (136-145)
[2022-04-01] MEDS: Clindamycin 600 MG/50 ML BAG 100 MG IV (07:25)
[2022-04-01] MEDS: Lubricating Jelly 60 GM Tube 30 GM (07:40)
[2022-04-01 08:01] LABS: Bedside Glucose 126 mg/dL (74-106)
[2022-04-01] MEDS: Lidocaine 2% /Epi 1:100 (50ml) 50 ML Vial (08:21)
[2022-04-01 08:34] LABS: Hemoglobin A1c 6.6 % (3.8-5.6)
--- NOTE | 2022-04-01 08:48 | PCM.OP.BLANK ---
Operative Report Date of Procedure: 04/01/22 Preoperative diagnosis: Left hip subcapital femoral neck fracture valgus impacted nondisplaced Postoperative diagnosis: Same Procedure: Percutaneous screw fixation of left hip Anesthesia: General EBL: 10 Complications: None Implant :Synthes 7.3mm cannulated hip screws x3 Condition: Stable to PACU Indication for procedure: 86-year-old male patient ground-level fall sustaining a nondisplaced transverse femoral neck fracture of his left hip orthopedic's was consulted for fracture we did discuss cannulated screw fixation of the hip. Risk benefits and alternatives were reviewed including risk of bleeding infection nerve, artery, bone, tissue damage, blood clot need for further surgery and continued pain, AVN. Procedure: Patient was met in the preoperative holding area once again the operative extremity was identified by both patient and physician was marked. Patient was met by anesthesia and brought back to the operating room on a wheeled cart and transferred the operating table in supine position anesthesia was started. Patient was then positioned on fracture table all bony prominences were well-padded. Fluoroscopy unit was brought in to ensure adequate AP and lateral projections could be achieved. Patient was then prepped and draped in usual sterile fashion a time out was called to the proper patient procedure and extremity are being contemplated. Fluoroscopy was once again brought in and with a metallic instrument the starting point was marked on the AP and lateral projections on the skin then made a stab incision through the skin and the pin was inserted to the appropriate starting point was advanced into the femoral head this was checked in both AP and lateral projections for position. We then used the parallel drill guide to place anterior and posterior screws superior to the initial screw creating an inverted triangle pattern. these were checked in both AP and lateral projections and measured self-tapping screws were then placed over the pins. Final AP and lateral projections were saved to the PACS system. Screw heads were checked to make sure there is no iliotibial band entrapment the wound was thoroughly irrigated subcutaneous tissue was closed with 0 Vicryl 2-0 Vicryl followed by pop in the skin standard dressing applied. Patient will be toe-touch weightbearing on the operative side until further notice and x-ray follow-up.
[2022-04-01 09:11] LABS: Bedside Glucose 180 mg/dL (74-106)
[2022-04-01] MEDS: Metoprolol Tartrate 25 MG Tablet PO ×2 (09:40→22:20)
[2022-04-01] MEDS: Pantoprazole Sodium 20 MG Tablet PO (09:40)
[2022-04-01] MEDS: Nystatin Powder 15gm Bottle 1 APPLIC TOPICAL ×2 (09:41→22:21)
[2022-04-01] MEDS: Cholecalciferol (VIT D3) 25 MCG TABLET (1,000 UNITS) PO (09:47)
--- NOTE | 2022-04-01 10:10 | CASEMGMT ---
Social Work Per RNCM, pt states his son Mike Hdz is HCPOA. RNCM updated pt that documents are not on file and requested they be brought in for scanning into EMR. MAYOC Beltre
--- NOTE | 2022-04-01 10:12 | CASEMGMT ---
Social Work SW met with pt and introduced self and role of SW. Pt lives alone in the independent living at [facility]. SW spoke with pt regarding discharge plan and pt states he will need short term rehabilitation prior to returning home. : A list of SNF providers including quality and resource use data and consistent with the patient?s preferred geographic region, medical needs, and insurance network were provided from the [facility] Guide. Pt preferred provider is [facility]. jeramy Jacques life science research assistant updated and to send referral. Plan: [facility], pending acceptance [facility]CO Beltre
--- NOTE | 2022-04-01 10:23 | CASEMGMT ---
Discharge Professional Nurse This underwriter solicitation director sent a referral to [facility] from skilled side. Will follow up. Brynn CARMICHAEL [employer]
[2022-04-01] MEDS: Insulin Lispro 100 UNIT/ML INSULN.PEN SC ×2 (11:58→17:02)
[2022-04-01] MEDS: Calcium Carbonate 500 MG Tablet PO ×2 (12:02→17:02)
[2022-04-01] MEDS: oxyCODONE 5 MG Tablet PO ×3 (12:02→22:21)
[2022-04-01 12:25] LABS: Bedside Glucose 174 mg/dL (74-106)
[2022-04-01] MEDS: Acetaminophen 500 MG Tablet 1000 MG PO ×2 (13:38→22:20)
--- NOTE | 2022-04-01 14:56 | PN.HOSP_ITS ---
Subjective Subjective Patient states he is somewhat loopy as he just returned from the OR. Denying any significant pain at this time. Objective Data Objective Data Vital Signs: Vital Signs Temp Pulse Resp BP Pulse Ox O2 Del Method O2 Flow Rate 99.0 F 95 16 101/62 96 Nasal Cannula 2 04/01/22 13:29 04/01/22 13:29 04/01/22 13:29 04/01/22 13:29 04/01/22 13:29 04/01/22 13:29 04/01/22 13:29 Oxygen Flow Rate (L/min) 2 Oxygen Delivery Method Nasal Cannula Weight: 100 kg Body Mass Index (BMI) 36.6 Intake & Output: Intake and Output for Last 24 Hours 03/30/22 03/31/22 04/01/22 23:59 23:59 23:59 Intake Total 204 / 204 1280.83 / 1280.83 Output Total 100 / 100 400 / 400 100 / 100 Balance -100 / -100 -196 / -196 1180.83 / 1180.83 Lab / Micro Data Result Diagrams: 04/01/22 05:45 04/01/22 05:45 Labs: Laboratory Results - last 24 hr 03/31/22 16:10: POC Glucose 177 H 03/31/22 21:13: POC Glucose 139 H 04/01/22 03:42: POC Glucose 174 H 04/01/22 05:45: WBC 8.2, RBC 4.09 L, Hgb 11.8 L, Hct 35.6 L, MCV 87.0, MCH 28.9, MCHC 33.1, RDW Std Deviation 44.9 H, RDW Coeff of Areli 14.2, Plt Count 143 L, MPV 9.8 04/01/22 05:45: Sodium 137, Potassium 3.8, Chloride 104, Carbon Dioxide 27.0, Anion Gap 6, BUN 41 H, Creatinine 1.71 H, Estim Creat Clear Calc 27.47, Est GFR (MDRD) Af Amer 49 L, Est GFR (MDRD) Non-Af 41 L, BUN/Creatinine Ratio 24.0 H, Glucose 150 H, Calcium 7.9 L, Magnesium 2.3 04/01/22 05:45: Hemoglobin A1c 6.6 H 04/01/22 05:45: Blood Type O NEGATIVE, Antibody Screen NEGATIVE 04/01/22 06:37: POC Glucose 126 H 04/01/22 08:50: POC Glucose 180 H 04/01/22 11:57: POC Glucose 174 H Radiography Diagnostic Testing: Radiology Impression Hip/Pelvis X-Ray 04/01/22 06:30 IMPRESSION: Relate screws extending into the femoral head. Electronically Signed: Devin Mcmanus MD, MAKEDA at 11:18 EDT Reading Location ID and State: [facility] / [place] Tel , Service support , Physical Exam Const alert, oriented x3, no apparent distress and well nourished Constitutional Narrative: Obese, elderly white male lying in bed, appears comfortable and nontoxic, nursing at bedside, patient is just returned from surgery General Appearance: cooperative HEENT normocephalic, head/scalp atraumatic and moist oral mucous membranes; Negative for hearing grossly normal bilaterally Resp normal respiratory effort, no retractions, no use of accessory muscles and clear to auscultation bilaterally Auscultation: Negative for crackles, rales, rhonchi or wheezes Cardio regular rhythm, S1 normal heart sound, S2 normal heart sound, no murmurs, no rub, no gallops, no clicks and no JVD Cardio Narrative: Irregularly irregular rhythm GI normal to inspection, nondistended, normoactive bowel sounds, soft to palpation and non-tender Extremity Extremity Narrative: Trace bilateral lower extremity edema, no cyanosis, small amount of clubbing on hands Skin no rashes or lesions noted, no wounds, skin turgor normal, no jaundice, no petechiae and no mottling Neuro oriented x3, CN's II-XII intact bilaterally and no focal motor deficits Neuro Narrative: Decreased movement left lower extremity secondary to pain at hip joint but no focal deficits Speech: speech normal Psych affect normal Psych Narrative: Appropriately interactive Assessment & Plan Assessment/Plan (1) Closed fracture of left hip: (2) Pain of left lower extremity: (3) Fall: (4) Hypomagnesemia: PLAN: Plan Left femoral fracture -As needed pain medication -Continue to hold home Eliquis -Last dose was a.m. of 03/30/2022 -Bowel regimen -EKG with changes and unclear if this is chronic or new therefore will obtain echocardiogram -Echocardiogram shows EF of 55% with biatrial enlargement right greater than left, mild to moderate aortic stenosis, mildly dilated aortic root, and a right ventricular systolic pressure of 71 mmHg with severe pulmonary artery hypertens ion, patient has no wall motion abnormalities -Orthopedic surgery to take to the OR tomorrow morning -Postoperative PT/OT -Patient will likely at least need assisted living if not skilled at discharge as patient is currently living in independent living facility -Per NSQIP patient is at an increased risk for serious complication/any complication/readmission//return to the OR -Would highly recommend extubating to BiPAP after surgery as patient is high risk for postoperative hypercapnia due to ANDREINA for which the patient is noncompliant and likely COPD Atrial fibrillation -Chronic -Hold Eliquis and restart postoperatively when okay with orthopedic surgery -Continue home metoprolol -Monitor clinically Hypomagnesemia -Severe -A.m. mag level is 0.8 -6 g replacement -Repeat mag level in a.m. Aortic stenosis -Mild to moderate on echo -Aortic valve area estimate is 1.2 cm on echocardiogram -We will recommend outpatient follow-up Pulmonary hypertension -Who group 3 secondary to likely obesity hypoventilation syndrome and ANDREINA along with possible COPD given history of tobacco abuse -Diuretics on hold secondary to KUSUM -We will gently hydrate at this time but monitor closely for volume overload -Restart Lasix as able DM-2 -Hold home glimepiride -Hold home metformin -A1c done 01/2022 was 6.2 indicating good glycemic control -A.m. fasting sugar was 106 -Moderate dose SSI 3 times daily -Accu-Cheks as ordered Hypertension -We will hold home lisinopril in the perioperative period and restart postoperatively -Continue metoprolol -As needed hydralazine -Blood pressures appear well controlled Hyperlipidemia -Continue home statin Gout -Patient is not on any baseline medication -Monitor clinically GERD -Continue home Protonix Neuropathy -Monitor -Patient is not on any baseline gabapentin for this CKD stage IIIb -Slight bump from baseline at 1.78 on admission and remained stable this morning -Appears baseline is 1.4-1.6 -Continue to hold diuretic and gently hydrate as patient will be n.p.o. tomorrow -Will likely stop IV fluids after surgery 04/01/2022 -Avoid nephrotoxins as able BPH -Patient will have Monae with hip fracture -We will start Flomax to avoid urinary retention postoperatively with anesthesia and history of BPH Chronic anemia -Baseline hemoglobin appears to be between 12 and 13 -Hemoglobin stable -Continue to monitor B12 deficiency -Restart home cyanocobalamin on discharge DVT prophylaxis -SCDs -Chemoprophylaxis on hold in preparation for surgery -We will leave postoperative chemoprophylaxis to orthopedic surgery Tobacco abuse -Patient smokes 1 cigar every few days -Denies need for nicotine replacement therapy -Recommend cessation
--- NOTE | 2022-04-01 16:07 | CASEMGMT ---
Social Work [facility] is able to accept pt when medically ready. SW notified physician. SW met with pt and updated that [facility] can accept. Pt states that he will call his son and update. Plan: [facility], when medically ready MAYCO Beltre
[2022-04-01] MEDS: Tamsulosin HCl 0.4 MG Capsule PO (17:02)
[2022-04-01 17:25] LABS: Bedside Glucose 187 mg/dL (74-106)
[2022-04-01] MEDS: Atorvastatin Calcium 20 MG Tablet PO (22:20)
[2022-04-01 23:00] LABS: Bedside Glucose 210 mg/dL (74-106)
[2022-04-02] VITALS (8 sets, daily range): BP systolic 92–122; BP diastolic 45–77; PULSE 78–88; RESP 16–18; TEMP 36.4–37; O2SAT 97–100
[2022-04-02] MEDS: APIXABAN 5 MG TABLET PO (04:55)
[2022-04-02] MEDS: Acetaminophen 500 MG Tablet 1000 MG PO ×2 (04:55→12:59)
[2022-04-02 05:10] LABS: Hematocrit 33.9 % (40-54); Hemoglobin 11.1 g/dL (13.0-16.5); Mean Corp Hgb Conc 32.7 g/dL (32-36); Mean Corpuscular Hgb 29.5 pg (27.0-32.0); Mean Corpuscular Volume 90.2 fL (80-94); Platelet Count 112 K/mm3 (150-450); RBC Distribution Width CV 14.4 % (11.6-14.6); Red Blood Count 3.76 M/mm3 (4.6-6.2); White Blood Count 7.7 K/mm3 (4.4-11.0)
[2022-04-02 05:31] LABS: Anion Gap 6 (5-15); BUN 38 mg/dL (7-18); BUN/Creat Ratio 22.8 RATIO (10-20); Chloride 104 mmol/L (98-107); Creatinine, Serum 1.67 mg/dL (0.70-1.30); EST Glomerular Filtration Rate 42 mL/min (>60); Est Glom Filt Rate - Afr Amer 50 mL/min (>60); Estimated Creatinine Clearance 28.13 ml/min; Glucose 128 mg/dL (74-106); Potassium 4.4 mmol/L (3.5-5.1); Sodium Level 136 mmol/L (136-145)
[2022-04-02 05:51] LABS: Bedside Glucose 127 mg/dL (74-106)
--- NOTE | 2022-04-02 07:34 | PN.HOSP_ITS ---
Objective Data Objective Data Vital Signs: Vital Signs Temp Pulse Resp BP Pulse Ox O2 Del Method O2 Flow Rate 97.8 F 78 18 113/69 98 Nasal Cannula 2 04/02/22 04:30 04/02/22 04:30 04/02/22 04:30 04/02/22 04:30 04/02/22 04:30 04/02/22 04:30 04/02/22 04:30 Oxygen Flow Rate (L/min) 2 Oxygen Delivery Method Nasal Cannula Weight: 231 lb 11.2 oz Body Mass Index (BMI) 36.6 Intake & Output: Intake and Output for Last 24 Hours 03/31/22 04/01/22 04/02/22 23:59 23:59 23:59 Intake Total 204 / 204 1985.83 / 1984. Output Total 400 / 400 300 / 300 Balance -196 / -196 1685.83 / 1685.83 Lab / Micro Data Result Diagrams: 04/02/22 04:58 04/02/22 04:58 Labs: Laboratory Results - last 24 hr 04/01/22 05:45: Hemoglobin A1c 6.6 H 04/01/22 06:37: POC Glucose 126 H 04/01/22 08:50: POC Glucose 180 H 04/01/22 11:57: POC Glucose 174 H 04/01/22 17:01: POC Glucose 187 H 04/01/22 21:54: POC Glucose 210 H 04/02/22 04:53: POC Glucose 127 H 04/02/22 04:58: WBC 7.7, RBC 3.76 L, Hgb 11.1 L, Hct 33.9 L, MCV 90.2, MCH 29.5, MCHC 32.7, RDW Std Deviation 47.0 H, RDW Coeff of Areli 14.4, Plt Count 112 L, MPV 10.0 04/02/22 04:58: Sodium 136, Potassium 4.4, Chloride 104, Carbon Dioxide 26.0, Anion Gap 6, BUN 38 H, Creatinine 1.67 H, Estim Creat Clear Calc 28.13, Est GFR (MDRD) Af Amer 50 L, Est GFR (MDRD) Non-Af 42 L, BUN/Creatinine Ratio 22.8 H, Glucose 128 H, Calcium 8.0 L Radiography Diagnostic Testing: Radiology Impression Hip/Pelvis X-Ray 04/01/22 06:30 IMPRESSION: Relate screws extending into the femoral head. Electronically Signed: Devin Mcmanus MD, MAKEDA at 11:18 EDT , Assessment & Plan Assessment/Plan (1) Closed fracture of left hip: (2) Pain of left lower extremity: (3) Fall: (4) Hypomagnesemia: PLAN: Plan This 86-year-old question gentleman was admitted with chief complaint of left hip pain after he had a fall while he was doing shopping at a grocery store. Left femoral fracture -As needed pain medication -Continue to hold home Eliquis -Last dose was a.m. of 03/30/2022 -Bowel regimen -EKG with changes and unclear if this is chronic or new therefore will obtain echocardiogram -Echocardiogram shows EF of 55% with biatrial enlargement right greater than left, mild to moderate aortic stenosis, mildly dilated aortic root, and a right ventricular systolic pressure of 71 mmHg with severe pulmonary artery hypertension, patient has no wall motion abnormalities -Orthopedic surgery to take to the OR tomorrow morning -Postoperative PT/OT -Patient will likely at least need assisted living if not skilled at discharge a s patient is currently living in independent living facility -Per NSQIP patient is at an increased risk for serious complication/any complication/readmission//return to the OR -Would highly recommend extubating to BiPAP after surgery as patient is high risk for postoperative hypercapnia due to ANDREINA for which the patient is noncompliant and likely COPD Atrial fibrillation -Chronic -Hold Eliquis and restart postoperatively when okay with orthopedic surgery -Continue home metoprolol -Monitor clinically Hypomagnesemia -Severe -A.m. mag level is 0.8 -6 g replacement -Repeat mag level in a.m. Aortic stenosis -Mild to moderate on echo -Aortic valve area estimate is 1.2 cm on echocardiogram -We will recommend outpatient follow-up Pulmonary hypertension -Who group 3 secondary to likely obesity hypoventilation syndrome and ANDREINA along with possible COPD given history of tobacco abuse -Diuretics on hold secondary to KUSUM -We will gently hydrate at this time but monitor closely for volume overload -Restart Lasix as able DM-2 -Hold home glimepiride -Hold home metformin -A1c done 01/2022 was 6.2 indicating good glycemic control -A.m. fasting sugar was 106 -Moderate dose SSI 3 times daily -Accu-Cheks as ordered Hypertension -We will hold home lisinopril in the perioperative period and restart postoperatively -Continue metoprolol -As needed hydralazine -Blood pressures appear well controlled Hyperlipidemia -Continue home statin Gout -Patient is not on any baseline medication -Monitor clinically GERD -Continue home Protonix Neuropathy -Monitor -Patient is not on any baseline gabapentin for this CKD stage IIIb -Slight bump from baseline at 1.78 on admission and remained stable this morning -Appears baseline is 1.4-1.6 -Continue to hold diuretic and gently hydrate as patient will be n.p.o. tomorrow -Will likely stop IV fluids after surgery 04/01/2022 -Avoid nephrotoxins as able BPH -Patient will have Monae with hip fracture -We will start Flomax to avoid urinary retention postoperatively with anesthesia and history of BPH Chronic anemia -Baseline hemoglobin appears to be between 12 and 13 -Hemoglobin stable -Continue to monitor B12 deficiency -Restart home cyanocobalamin on discharge DVT prophylaxis -SCDs -Chemoprophylaxis on hold in preparation for surgery -We will leave postoperative chemoprophylaxis to orthopedic surgery Tobacco abuse -Patient smokes 1 cigar every few days -Denies need for nicotine replacement therapy -Recommend cessation
--- NOTE | 2022-04-02 07:39 | PN.ORTHO_ITS ---
Subjective Subjective sen And examined, doing okay does have some pain when he moves his legs otherwise he is very comfortable. Denies fevers chills nausea vomiting shortness of breath or chest pain or dizziness Objective Data Objective Data Vital Signs: Vital Signs Temp Pulse Resp BP Pulse Ox O2 Del Method O2 Flow Rate 97.8 F 78 18 113/69 98 Nasal Cannula 2 04/02/22 04:30 04/02/22 04:30 04/02/22 04:30 04/02/22 04:30 04/02/22 04:30 04/02/22 04:30 04/02/22 04:30 Oxygen Flow Rate (L/min) 2 Oxygen Delivery Method Nasal Cannula Weight: 231 lb 11.2 oz Body Mass Index (BMI) 36.6 Intake & Output: Intake and Output for Last 24 Hours 03/31/22 04/01/22 04/02/22 23:59 23:59 23:59 Intake Total 204 / 204 1985.83 / 1984.83 Output Total 400 / 400 300 / 300 Balance -196 / -196 1685.83 / 1685.83 Lab / Micro Data Result Diagrams: 04/02/22 04:58 04/02/22 04:58 Labs: Laboratory Results - last 24 hr 04/01/22 05:45: Hemoglobin A1c 6.6 H 04/01/22 06:37: POC Glucose 126 H 04/01/22 08:50: POC Glucose 180 H 04/01/22 11:57: POC Glucose 174 H 04/01/22 17:01: POC Glucose 187 H 04/01/22 21:54: POC Glucose 210 H 04/02/22 04:53: POC Glucose 127 H 04/02/22 04:58: WBC 7.7, RBC 3.76 L, Hgb 11.1 L, Hct 33.9 L, MCV 90.2, MCH 29.5, MCHC 32.7, RDW Std Deviation 47.0 H, RDW Coeff of Areli 14.4, Plt Count 112 L, MPV 10.0 04/02/22 04:58: Sodium 136, Potassium 4.4, Chloride 104, Carbon Dioxide 26.0, Anion Gap 6, BUN 38 H, Creatinine 1.67 H, Estim Creat Clear Calc 28.13, Est GFR (MDRD) Af Amer 50 L, Est GFR (MDRD) Non-Af 42 L, BUN/Creatinine Ratio 22.8 H, Glucose 128 H, Calcium 8.0 L Radiography Diagnostic Testing: Radiology Impression Hip/Pelvis X-Ray 04/01/22 06:30 IMPRESSION: Relate screws extending into the femoral head. Electronically Signed: Devin Mcmanus MD, MAKEDA at 11:18 EDT Reading Location ID and State: [facility] / [place] Tel , Service support , Physical Exam Const alert, oriented x3 and no apparent distress Extremity Extremity Narrative: Left hip dressing clean dry intact compartments soft neurovascular intact Assessment & Plan Assessment/Plan (1) Fracture of femoral neck, left, closed: PLAN: Plan Postop day 1 left hip percutaneous screw fixation for nondisplaced femoral neck fracture PT OT toe-touch weightbearing left lower extremity 6 weeks postop DVT prophylaxis SCDs ARLEY hose resume preoperative Eliquis regimen Pain control oxycodone Follow-up in office 2 weeks for wound check and staple removal Dressing should be left on until April 05, 2022. Then should be removed and should be washed daily with antibacterial soap and warm water but not submerge in a tub and dry dressing reapplied daily until follow-up appointment.
[2022-04-02] MEDS: Calcium Carbonate 500 MG Tablet PO ×2 (09:00→12:59)
[2022-04-02] MEDS: Cholecalciferol (VIT D3) 25 MCG TABLET (1,000 UNITS) PO (09:01)
[2022-04-02] MEDS: Pantoprazole Sodium 20 MG Tablet PO (09:01)
[2022-04-02] MEDS: Nystatin Powder 15gm Bottle 1 APPLIC TOPICAL (09:01)
[2022-04-02] MEDS: oxyCODONE 5 MG Tablet PO (09:05)
--- NOTE | 2022-04-02 09:36 | TREXTCAR_ITS ---
Diet Diet Order/Speech Therapy: 04/01/22 11:02 Diet: Consistent Carb - Calorie Controlled Is pt able to select menu?: Yes How many daily calories?: 1800 calorie Routine Orders/Code Status Suppository Type: Dulcolax 10mg Suppository Frequency: Daily PRN Wound(s) left hip: Wound Type: Surgical Incision Therapies Weight Bearing: Toe-touch weight bearing Extremity Affected:: Left Lower Physical Therapy: Eval and Treat Occupational Therapy: Eval and Treat Speech Therapy: Eval and Treat Problem/Diagnosis (1) Fracture of femoral neck, left, closed: Status: Acute Code(s): S72.002A - Fracture of unspecified part of neck of left femur, initial encounter for closed fracture Plan Left femoral fracture -As needed pain medication -Continue to hold home Eliquis -Last dose was a.m. of 03/30/2022 -Bowel regimen -EKG with changes and unclear if this is chronic or new therefore will obtain echocardiogram -Echocardiogram shows EF of 55% with biatrial enlargement right greater than left, mild to moderate aortic stenosis, mildly dilated aortic root, and a right ventricular systolic pressure of 71 mmHg with severe pulmonary artery hypertension, patient has no wall motion abnormalities -Orthopedic surgery to take to the OR tomorrow morning -Postoperative PT/OT -Patient will likely at least need assisted living if not skilled at discharge as patient is currently living in independent living facility -Per NSQIP patient is at an increased risk for serious complication/any complication/readmission//return to the OR -Would highly recommend extubating to BiPAP after surgery as patient is high risk for postoperative hypercapnia due to ANDREINA for which the patient is n oncompliant and likely COPD Atrial fibrillation -Chronic -Hold Eliquis and restart postoperatively when okay with orthopedic surgery -Continue home metoprolol -Monitor clinically Hypomagnesemia -Severe -A.m. mag level is 0.8 -6 g replacement . Repeat magnesium 2.3. Serum phosphorus 3.7 Aortic stenosis -Mild to moderate on echo -Aortic valve area estimate is 1.2 cm on echocardiogram recommend outpatient follow-up Pulmonary hypertension -Who group 3 secondary to likely obesity hypoventilation syndrome and ANRDEINA along with possible COPD given history of tobacco abuse -Diuretics on hold secondary to KUSUM -We will gently hydrate at this time but monitor closely for volume overload -Restart Lasix as able DM-2 -Hold home glimepiride -Hold home metformin -A1c done 01/2022 was 6.2 indicating good glycemic control -A.m. fasting sugar was 106 -Moderate dose SSI 3 times daily -Accu-Cheks as ordered Hypertension -We will hold home lisinopril in the perioperative period and restart postoperatively -Continue metoprolol -As needed hydralazine -Blood pressures appear well controlled Hyperlipidemia -Continue home statin Gout -Patient is not on any baseline medication -Monitor clinically GERD -Continue home Protonix Neuropathy -Monitor -Patient is not on any baseline gabapentin for this CKD stage IIIb -Slight bump from baseline at 1.78 on admission and remained stable this morning -Appears baseline is 1.4-1.6 -Continue to hold diuretic and gently hydrate as patient will be n.p.o. tomorrow -Will likely stop IV fluids after surgery 04/01/2022 -Avoid nephrotoxins as able BPH -Patient will have Monae with hip fracture -We will start Flomax to avoid urinary retention postoperatively with anesthesia and history of BPH Chronic anemia -Baseline hemoglobin appears to be between 12 and 13 -Hemoglobin stable -Continue to monitor B12 deficiency -Restart home cyanocobalamin on discharge DVT prophylaxis -SCDs -Chemoprophylaxis on hold in preparation for surgery -We will leave postoperative chemoprophylaxis to orthopedic surgery Tobacco abuse -Patient smokes 1 cigar every few days -Denies need for nicotine replacement therapy -Recommend cessation Allergies/Procedures Done in Hospital Allergies Penicillins Allergy (Verified 03/30/22 09:47) NEEDS FOLLOW-UP Type of Care/Length of Stay Estimated LOS: Convalescent Care Less Than 30 days Type of Care Needed: Skilled Rehab Potential: Good Prognosis: Good Additional Orders/Day of Discharge Day of Discharge: 04/02/22 Discharge Plan Admission Admit Date/Time: 03/30/22 12:22 Primary Reason for Your Visit: Left hip subcultured fracture, valgus impacted nondisplaced Attending Provider: Jose L Smith Primary Care Provider: Reece Rg Consulting Providers: Kavin Whitaker ; Bela Mayes Instructions Additional Instructions / Restrictions: Dressing should be left on until April 05, 2022.? Then should be removed and should be washed daily with antibacterial soap and warm water but not submerge in a tub and dry dressing reapplied daily until follow-up appointment. Discharge Orders/Prescriptions Prescriptions: New acetaminophen 500 mg Tablet 1,000 mg PO Q8 Qty: 0 0RF Rx Instructions: For 7 days then as needed sennosides-docusate sodium [Stool Softener-Stimulant Laxat] 8.6-50 mg Tablet 2 tab PO BID PRN PRN (Reason: Constipation) Qty: 0 0RF calcium carbonate 200 mg calcium (500 mg) Tablet,Chewable 500 mg PO TIDCM Qty: 0 0RF oxycodone 5 mg Tablet 5 mg PO Q4H PRN PRN (Reason: Pain Score 4-10) 3 Days Qty: 10 0RF tamsulosin 0.4 mg Capsule 0.4 mg PO DAILY@1730 Qty: 30 0RF cholecalciferol (vitamin D3) 25 mcg (1,000 unit) Tablet 25 mcg PO DAILY Qty: 0 0RF Continued glimepiride 2 mg tablet 2 mg PO DAILY Label Comments: TAKE 1 TABLET BY MOUTH EVERY DAY DIRECTED metformin 1,000 mg tablet 1,000 mg PO BID Label Comments: TAKE 1 TABLET TWICE A DAY metoprolol tartrate 25 mg tablet 25 mg PO BID Eliquis 5 mg tablet 5 mg PO BID Label Comments: TAKE 1 TABLET TWICE A DAY simvastatin 40 mg tablet 40 mg PO QHS Label Comments: TAKE 1 TABLET BY MOUTH EVERYDAY AT BEDTIME Vitamin B-12 50 mcg Tablet 50 mcg PO DAILY pantoprazole 20 mg tablet,delayed release (DR/EC) 20 mg PO DAILY Held lisinopril 10 mg tablet 10 mg PO DAILY Hold Instructions: Hold for 3 days and resume lower dose, according to BP. Label Comments: TAKE 1 TABLET BY MOUTH EVERY DAY bumetanide 1 mg tablet 1 mg PO DAILY Hold Instructions: Hold for 3 days Referrals / Follow Up: Reece Rg MD [Primary Care Provider] - Kavin Whitaker DO [Med Staff - Active Staff] - Within 2 Weeks Disposition Disposition (needs filled in before D/C Order can be placed): Assisted Facility
[2022-04-02] MEDS: Insulin Lispro 100 UNIT/ML INSULN.PEN SC (11:10)
[2022-04-02 11:26] LABS: Bedside Glucose 215 mg/dL (74-106)
--- NOTE | 2022-04-02 13:55 | DS.PCM_ITS ---
Providers Date of Admission: 03/30/22 Date of Discharge: 04/02/22 Primary Care Physician: Dr. Reece Rg MD Consultations 03/30/22 12:53 Consult: Orthopedics Routine Consulting Provider: Kavin Whitaker Reason for Consult: Hip fracture EMERGENT Consult: No MD Notified: Yes Date Notified: 03/30/22 Time Notified: 12:25 Method of Notification: ED Physician Initiated Reason For Visit: HIP FX Diagnosis Discharge Diagnosis (1) Fracture of femoral neck, left, closed: Status: Acute Code(s): S72.002A - Fracture of unspecified part of neck of left femur, initial encounter for closed fracture Plan Left femoral fracture -As needed pain medication -Continue to hold home Eliquis -Last dose was a.m. of 03/30/2022 -Bowel regimen -EKG with changes and unclear if this is chronic or new therefore will obtain echocardiogram -Echocardiogram shows EF of 55% with biatrial enlargement right greater than left, mild to moderate aortic stenosis, mildly dilated aortic root, and a right ventricular systolic pressure of 71 mmHg with severe pulmonary artery hyp ertension, patient has no wall motion abnormalities -Orthopedic surgery to take to the OR tomorrow morning -Postoperative PT/OT -Patient will likely at least need assisted living if not skilled at discharge as patient is currently living in independent living facility -Per NSQIP patient is at an increased risk for serious complication/any complication/readmission//return to the OR -Would highly recommend extubating to BiPAP after surgery as patient is high risk for postoperative hypercapnia due to ANDREINA for which the patient is noncompliant and likely COPD Atrial fibrillation -Chronic -Hold Eliquis and restart postoperatively when okay with orthopedic surgery -Continue home metoprolol -Monitor clinically Hypomagnesemia -Severe -A.m. mag level is 0.8 -6 g replacement . Repeat magnesium 2.3. Serum phosphorus 3.7 Aortic stenosis -Mild to moderate on echo -Aortic valve area estimate is 1.2 cm on echocardiogram recommend outpatient follow-up Pulmonary hypertension -Who group 3 secondary to likely obesity hypoventilation syndrome and ANDREINA along with possible COPD given history of tobacco abuse -Diuretics on hold secondary to KUSUM -We will gently hydrate at this time but monitor closely for volume overload -Restart Lasix as able DM-2 -Hold home glimepiride -Hold home metformin -A1c done 01/2022 was 6.2 indicating good glycemic control -A.m. fasting sugar was 106 -Moderate dose SSI 3 times daily -Accu-Cheks as ordered Hypertension -We will hold home lisinopril in the perioperative period and restart postoperatively -Continue metoprolol -As needed hydralazine -Blood pressures appear well controlled Hyperlipidemia -Continue home statin Gout -Patient is not on any baseline medication -Monitor clinically GERD -Continue home Protonix Neuropathy -Monitor -Patient is not on any baseline gabapentin for this CKD stage IIIb -Slight bump from baseline at 1.78 on admission and remained stable this morning -Appears baseline is 1.4-1.6 -Continue to hold diuretic and gently hydrate as patient will be n.p.o. tomorrow -Will likely stop IV fluids after surgery 04/01/2022 -Avoid nephrotoxins as able BPH -Patient will have Monae with hip fracture -We will start Flomax to avoid urinary retention postoperatively with anesthesia and history of BPH Chronic anemia -Baseline hemoglobin appears to be between 12 and 13 -Hemoglobin stable -Continue to monitor B12 deficiency -Restart home cyanocobalamin on discharge DVT prophylaxis -SCDs -Chemoprophylaxis on hold in preparation for surgery -We will leave postoperative chemoprophylaxis to orthopedic surgery Tobacco abuse -Patient smokes 1 cigar every few days -Denies need for nicotine replacement therapy -Recommend cessation Medications at Discharge Home Medications apixaban 5 mg tablet (Eliquis) 5 mg PO BID 03/30/22 bumetanide 1 mg tablet 1 mg PO DAILY FLUID 03/30/22 cyanocobalamin (vitamin B-12) 50 mcg tablet (Vitamin B-12) 50 mcg PO DAILY SUPPLEMENT 03/30/22 glimepiride 2 mg tablet 2 mg PO DAILY 03/30/22 lisinopril 10 mg tablet 10 mg PO DAILY BP 03/30/22 metformin 1,000 mg tablet 1,000 mg PO BID 03/30/22 metoprolol tartrate 25 mg tablet 25 mg PO BID 03/30/22 pantoprazole 20 mg tablet,delayed release 20 mg PO DAILY GERD 03/30/22 simvastatin 40 mg tablet 40 mg PO QHS CHOLESTEROL 03/30/22 acetaminophen 500 mg tablet 1,000 mg PO Q8 #0 tabs 04/02/22 calcium carbonate 200 mg calcium (500 mg) chewable tablet 500 mg PO TIDCM #0 tabs 04/02/22 cholecalciferol (vitamin D3) 25 mcg (1,000 unit) tablet 25 mcg PO DAILY #0 tabs 04/02/22 oxycodone 5 mg tablet 5 mg PO Q4H PRN PRN Pain Score 4-10 3 days #10 tabs 04/02/22 sennosides 8.6 mg-docusate sodium 50 mg tablet (Stool Softener-Stimulant Laxative) 2 tab PO BID PRN PRN Constipation #0 tabs 04/02/22 tamsulosin 0.4 mg capsule 0.4 mg PO DAILY@1730 #30 caps 04/02/22 Hospital Course Summary of Care Provided Hospital Course: This 86-year-old question gentleman was admitted with chief complaint of left hip pain after he had a fall while he was doing shopping at a grocery store. 1. Left hip subcapitate fracture, valgus impacted nondisplaced from standing height therefore most likely pathological, osteoporosis: [facility]. Patient was seen by orthopedic surgeon and had percutaneous 3 9 screw fixation of left hip on 04/01/2022. On pain medication. Patient was e valuated by PT and OT and is being discharged to SNF. Eliquis is resumed. On calcium and vitamin D supplement. -EKG and 2D echo was done. Twelve-lead EKG shows A. fib with PVC, right bundle branch block T wave abnormality, probably old inferior lateral ischemia. Echocardiogram shows EF of 55% with biatrial enlargement right greater than left, mild to moderate aortic stenosis, mildly dilated aortic root, and a right ventricular systolic pressure of 71 mmHg with severe pulmonary artery hypert ension, patient has no wall motion abnormalities Chronic atrial fibrillation: Eliquis is resumed. Patient on metoprolol. Hypomagnesemia, severe: Serum magnesium is 0.8. Magnesium sulfate IV was re placed. Repeat magnesium 2.3. - Aortic stenosis -Mild to moderate on echo -Aortic valve area estimate is 1.2 cm on echocardiogram -We will recommend outpatient follow-up Pulmonary hypertension -Who group 3 secondary to likely obesity hypoventilation syndrome and ANDREINA along with possible COPD given history of tobacco abuse -Diuretics on hold due to elevated creatinine, 1.78. Patient was hydrated. DM-2 Glimepiride resumed. Metformin was held. -A1c done 01/2022 was 6.2 indicating good glycemic control -A.m. fasting sugar was 106 -Moderate dose SSI 3 times daily Hypertension hold home lisinopril in the perioperative period and restart postoperatively -Continue metoprolol -As needed hydralazine -Blood pressures appear well controlled Hyperlipidemia -Continue home statin Gout -Patient is not on any baseline medication -Monitor clinically GERD -Continue home Protonix Neuropathy -Monitor -Patient is not on any baseline gabapentin for this CKD stage IIIb -Slight bump from baseline at 1.78 on admission and remained stable this morning, no prior creatinine on [employer]. -Appears baseline is 1.4-1.6 -Hold Lasix and lisinopril for 3 more days. Monitor kidney function. BPH -Patient will have Monae with hip fracture -Was started on Flomax to avoid urinary retention postoperatively with anesthesia and history of BPH. Continue for 30 more days and then reevaluate lower urinary tract symptoms Chronic anemia -Baseline hemoglobin appears to be between 12 and 13 -Hemoglobin stable -Continue to monitor B12 deficiency -Restart home cyanocobalamin on discharge DVT prophylaxis -SCDs -Chemoprophylaxis on hold in preparation for surgery -We will leave postoperative chemoprophylaxis to orthopedic surgery Tobacco abuse -Patient smokes 1 cigar every few days -Denies need for nicotine replacement therapy -Recommend cessation Discharge medication reconciliation done. Discharge follow-up instructions completed. Discharge process discussed with the patient and all questions were answered to patient's satisfaction. Total time spent, exact 35 minutes on discharge meds reconciliation, examination, coordination of care with nurses and ancillary staff, review of imaging and blood test and discussion with the patient on follow-up instructions. Physical Exam Narrative Physical exam General: Alert, Oriented x3, Cooperative HEENT: Atraumatic, PERRLA, EOMI, Normocephalic Oral: No Gingival or Mucosal Lesions/ Ulcerations Neck: Supple, No JVD, Negative Carotid Bruits Lungs: Air entry diminished in bilateral lung bases. No crepitation/rhonchi Cardiovascular: Irregular rhythm, Normal S1, Normal S2, right second ICS systolic murmur. Abdomen: Bowel Sounds Present, Soft, Non Tender, Non-Distended : No renal angle tenderness. No suprapubic tenderness. Extremities: No edema, Capillary Refill Less than 3 Seconds Skin: No rashes, No breakdown Musculoskeletal: Left hip surgical dressing is dry. No Tenderness to Palpation of Joints or Extremities Neurological: Cranial nerves II-XII grossly intact, DTR 2+/4 and Symmetrical, no acute focal deficit Psych/Mental Status: Flat affect.. Weight / BMI Weight Weight: 231 lb 11.2 oz Body Mass Index (BMI) 36.6 ABG / Lab / Microbiology Data Result Diagrams: 04/02/22 04:58 04/02/22 04:58 Laboratory: Laboratory Results - last 24 hr 04/01/22 17:01: POC Glucose 187 H 04/01/22 21:54: POC Glucose 210 H 04/02/22 04:53: POC Glucose 127 H 04/02/22 04:58: WBC 7.7, RBC 3.76 L, Hgb 11.1 L, Hct 33.9 L, MCV 90.2, MCH 29.5, MCHC 32.7, RDW Std Deviation 47.0 H, RDW Coeff of Areli 14.4, Plt Count 112 L, MPV 10.0 04/02/22 04:58: Sodium 136, Potassium 4.4, Chloride 104, Carbon Dioxide 26.0, A nion Gap 6, BUN 38 H, Creatinine 1.67 H, Estim Creat Clear Calc 28.13, Est GFR (MDRD) Af Amer 50 L, Est GFR (MDRD) Non-Af 42 L, BUN/Creatinine Ratio 22.8 H, Glucose 128 H, Calcium 8.0 L 04/02/22 10:59: POC Glucose 215 H Meaningful Use Info Meaningful Use Diagnoses (Choose all that apply): None applicable Discharge Plan Admission Admit Date/Time: 03/30/22 12:22 Primary Reason for Your Visit: Left hip subcultured fracture, valgus impacted nondisplaced Attending Provider: Jose L Smith Primary Care Provider: Reece Rg Consulting Providers: Kavin Whitaker ; Bela Mayes Instructions Additional Instructions / Restrictions: Dressing should be left on until April 05, 2022.? Then should be removed and should be washed daily with antibacterial soap and warm water but not submerge in a tub and dry dressing reapplied daily until follow-up appointment. Discharge Orders/Prescriptions Prescriptions: New acetaminophen 500 mg Tablet 1,000 mg PO Q8 Qty: 0 0RF Rx Instructions: For 7 days then as needed sennosides-docusate sodium [Stool Softener-Stimulant Laxat] 8.6-50 mg Tablet 2 tab PO BID PRN PRN (Reason: Constipation) Qty: 0 0RF calcium carbonate 200 mg calcium (500 mg) Tablet,Chewable 500 mg PO TIDCM Qty: 0 0RF oxycodone 5 mg Tablet 5 mg PO Q4H PRN PRN (Reason: Pain Score 4-10) 3 Days Qty: 10 0RF tamsulosin 0.4 mg Capsule 0.4 mg PO DAILY@1730 Qty: 30 0RF cholecalciferol (vitamin D3) 25 mcg (1,000 unit) Tablet 25 mcg PO DAILY Qty: 0 0RF Continued glimepiride 2 mg tablet 2 mg PO DAILY Label Comments: TAKE 1 TABLET BY MOUTH EVERY DAY DIRECTED metformin 1,000 mg tablet 1,000 mg PO BID Label Comments: TAKE 1 TABLET TWICE A DAY metoprolol tartrate 25 mg tablet 25 mg PO BID Eliquis 5 mg tablet 5 mg PO BID Label Comments: TAKE 1 TABLET TWICE A DAY simvastatin 40 mg tablet 40 mg PO QHS Label Comments: TAKE 1 TABLET BY MOUTH EVERYDAY AT BEDTIME Vitamin B-12 50 mcg Tablet 50 mcg PO DAILY pantoprazole 20 mg tablet,delayed release (DR/EC) 20 mg PO DAILY Held lisinopril 10 mg tablet 10 mg PO DAILY Hold Instructions: Hold for 3 days and resume lower dose, according to BP. Label Comments: TAKE 1 TABLET BY MOUTH EVERY DAY bumetanide 1 mg tablet 1 mg PO DAILY Hold Instructions: Hold for 3 days Referrals / Follow Up: Reece Rg MD [Primary Care Provider] - Kavin Whitaker DO [Med Staff - Active Staff] - Within 2 Weeks Disposition Disposition (needs filled in before D/C Order can be placed): Long-Term Facility Charges/Coding Visit Charges Inpatient E&M: 85695 Disch Hosp
--- NOTE | 2022-04-02 15:02 | CASEMGMT ---
Social Work Per physician, pt is ready for discharge today. Phone call to Flores at [facility] and they are able to accept pt today and will provide transportation with cigar packer and picker time between 3:30 and 4:00. Camilla at [facility] notified that pt will need a portable oxygen tank for transport. SW met with pt and informed of discharge plan. Pt is agreeable and declines SW calling his son stating he will notify him of d/c plan. [id number] convalescent form completed in [facility] and sent along with orders and covid test results to [facility] via [employer]. Nursing updated on d/c time. Plan: [facility]: Skilled level of care under convalescent stay [facility]
== END 2022-04-02 17:00 | disposition skilled nursing facility (03) | DRG 481 ==
LOC: ED 12:32 → MS3 12:47
PROVIDERS: Anesthesiology; Orthopaedic Surgery; Admitting Provider Internal Medicine; Emergency Provider Emergency Medicine; PCP Family Medicine; Visit Provider Internal Medicine
PROC: 0QH734Z Insertion of Internal Fixation Device into Left Upper Femur, Percutaneous Approach (ICD-10-PCS; principal; 2022-04-01 07:00)
DX: S72.002A Fracture of unspecified part of neck of left femur, initial encounter for closed fracture (principal); N17.9 Acute kidney failure, unspecified; E66.2 Morbid (severe) obesity with alveolar hypoventilation; I48.20 Chronic atrial fibrillation, unspecified; E11.22 Type 2 diabetes mellitus with diabetic chronic kidney disease; D64.9 Anemia, unspecified; E11.40 Type 2 diabetes mellitus with diabetic neuropathy, unspecified; N18.32 Chronic kidney disease, stage 3b; I77.819 Aortic ectasia, unspecified site; J44.9 Chronic obstructive pulmonary disease, unspecified; F17.290 Nicotine dependence, other tobacco product, uncomplicated; M10.9 Gout, unspecified; K21.9 Gastro-esophageal reflux disease without esophagitis; E78.5 Hyperlipidemia, unspecified; I12.9 Hypertensive chronic kidney disease with stage 1 through stage 4 chronic kidney disease, or unspecified chronic kidney disease; E53.8 Deficiency of other specified B group vitamins; E83.42 Hypomagnesemia; I35.0 Nonrheumatic aortic (valve) stenosis; I10 Essential (primary) hypertension; Z79.01 Long term (current) use of anticoagulants; N40.0 Benign prostatic hyperplasia without lower urinary tract symptoms
CPT/HCPCS: 36415; 70450; 71045; 73501; 73502; 73700; 76000; 80048; 80053; 82962; 83036; 83735; 84100; 84443; 85025; 85027; 85610; 85730; 86850; 86900; 86901; 87426; 93005; 93306; 97162; 97166; 99251; 99284; 99406; C1713; J7120; Q9957; A4216; G0463; J2405